=== PATIENT | female | born 1975 | race Caucasian/White ===

== ENCOUNTER 2017-06-10 12:40 | Observation (INO) | payer MEDICARE, OTHER ==
[~2017-06-10] VITALS: Ht 154.9 cm; Wt 48.2 kg
[~2017-06-10 12:40] MED LIST: ALPR1TAB2 PO; AMOX1TAB64 PO; BIOT10TA PO; CALC667C PO; CINA60TA PO; DOXE2VIA IV; ECUL300V IV; FOLI0.8T2 PO; GABA300C10 PO; HYDR200T PO; LACT10SO28 PO; LOPE1LIQ6 PO; LORA2VIA4 IV; MAGN300C PO; METH-356 PO; MIDO10TA PO; OMEP-110 PO; ONDA4TAB7 PO; ROPI0.5T2 PO; SIMV40TA3 PO; VITA0.4T5 PO; VITA1TAB19 PO; WARF2.5T73 PO; [UNRECOGNIZED DRUG - CODE] IV; [UNRECOGNIZED DRUG - CODE] IV
[2017-06-10 13:00] VITALS: BP 113/62
[2017-06-10] MEDS ORDERED: FENTANYL PF 100 MCG/2ML ONE ×3 (13:07→17:52)
[2017-06-10] MEDS ORDERED: MIDAZOLAM 1 MG/ML, 2ML ONE (13:07)
[2017-06-10] MEDS ORDERED: BUPIVACAINE/PF 0.5% ONE (13:10)
[2017-06-10] MEDS ORDERED: THROMBIN 20,000 UNIT VIAL TP ONE (13:10)
[2017-06-10] MEDS ORDERED: EPINEPHRINE 1 MG/ML, 1ML ONE (13:10)
[2017-06-10 13:57] LABS: MEAN CORPUSCULAR HEMOGLOBIN 33.1 pg (27.0-34.8); MEAN CORPUSCULAR HGB CONC 32.1 g/dL (32.4-35.8); MEAN CORPUSCULAR VOLUME 103.1 fL (80-100); MEAN PLATELET VOLUME 9.5 fL (7.4-10.4); PLATELET COUNT 99 x10^3/uL (130-400); RED BLOOD COUNT 4.01 x10^6/uL (3.82-5.3); RED CELL DISTRIBUTION WIDTH 15.7 % (9.6-15.2)
[2017-06-10 13:58] LABS: ALANINE AMINOTRANSFERASE 18 U/L (12-78); ALBUMIN 3.6 g/dL (3.4-5.0); ANION GAP 10 mmol/L (5-15); CALCIUM 10.3 mg/dL (8.5-10.1); CHLORIDE 105 mmol/L (98-107); CREATININE 6.82 mg/dL (0.55-1.02)
[2017-06-10] MEDS ORDERED: PHENYLEPHRINE 10 MG/ML ONE (13:58)
[2017-06-10] MEDS ORDERED: DEXAMETHASONE 4 MG/ML, 1ML ONE (13:58)
[2017-06-10] MEDS ORDERED: ROCURONIUM 10 MG/ML,10ML ONE (13:58)
[2017-06-10] MEDS ORDERED: ONDANSETRON 2MG/ML, 2ML ONE (13:58)
[2017-06-10] MEDS ORDERED: PROPOFOL 10 MG/ML, 20ML ONE (13:58)
[2017-06-10] MEDS ORDERED: CEFAZOLIN 1,000 MG ONE (13:58)
[2017-06-10 14:00] LABS: ALKALINE PHOSPHATASE 113 U/L (45-117); BILIRUBIN,TOTAL 0.5 mg/dL (0.2-1.0); TOTAL PROTEIN 6.6 g/dL (6.4-8.2)
[2017-06-10 14:01] LABS: BASOPHILS # (AUTO) 0.02 x10^3/uL (0-0.1); BASOPHILS % (AUTO) 0 % (0-1); EOSINOPHILS # (AUTO) 0.01 x10^3/uL (0-0.4); EOSINOPHILS % (AUTO) 0 % (1-7); LYMPHOCYTES # (AUTO) 0.65 x10^3/uL (1-3.4); LYMPHOCYTES % (AUTO) 14 % (22-44); MD SCAN; MONOCYTES # (AUTO) 0.27 x10^3/uL (0.2-0.8); MONOCYTES % (AUTO) 6 % (2-9); NEUTROPHILS # (AUTO) 3.61 x10^3/uL (1.8-6.8); NEUTROPHILS % (AUTO) 79 % (42-75)
[2017-06-10] MEDS ORDERED: ARGATROBAN IN 0.9 % SOD CHLOR 250 ML IV PRN (15:30)
[2017-06-10] MEDS ORDERED: ARGATROBAN IV ONE (15:30)
[2017-06-10] MEDS ORDERED: OXYcodone 5 MG/5 ML ORAL.SOL UDC PO PRN (16:30)
[2017-06-10] MEDS ORDERED: PROMETHAZINE 25 MG/ML, 1ML IV PRN (16:30)
[2017-06-10] MEDS ORDERED: ACETAMINOPHEN 325 MG TABLET PO PRN (16:30)
[2017-06-10] MEDS ORDERED: OXYcodone 5 MG/5 ML ORAL.SOL UDC ONE (17:52)
[2017-06-10] MEDS ORDERED: PROMETHAZINE 25 MG/ML, 1ML ONE (17:52)
[2017-06-10] MEDS: FENTANYL PF 100 MCG/2ML IV PRN ×2 (17:55→18:08)
[2017-06-10] MEDS ORDERED: HYDROmorphone 2 MG/ML, 1ML ONE ×2 (17:56→18:21)
[2017-06-10] MEDS ORDERED: VISIPAQUE 270 MG/ML, 50ML BOTTLE ONE (17:58)
[2017-06-10] MEDS: HYDROmorphone 1 MG/ML, 1ML IV PRN ×6 (18:00→18:31)
[2017-06-10] MEDS ORDERED: HYDROmorphone PCA 30 MG/30 ML ONE (18:51)
[2017-06-10] MEDS ORDERED: HYDROmorphone PCA 30 MG/30 ML IV PRN (19:00)
[2017-06-10 20:00] VITALS: BP 113/66
[2017-06-10] MEDS ORDERED: SIMVASTATIN 40 MG TABLET PO SCH (21:00)
[2017-06-10] MEDS ORDERED: HYDROXYCHLOROQUINE 200 MG TABLET PO SCH (21:00)
[2017-06-10] MEDS ORDERED: ONDANSETRON 4 MG TABLET PO PRN (21:00)
[2017-06-10] MEDS ORDERED: ROPINIROLE 0.5MG TABLET PO SCH (21:00)
[2017-06-10] MEDS ORDERED: SODIUM CHLORIDE FLUSH 10ML SYR IVF SCH (21:00)
[2017-06-10] MEDS ORDERED: GABAPENTIN 300 MG CAPSULE PO SCH (21:00)
[2017-06-10] MEDS ORDERED: LORazepam 2 MG/ML, 1ML IVPush PRN (23:00)
[2017-06-10] MEDS ORDERED: MIDODRINE 5 MG TABLET PO PRN (23:00)
[2017-06-11 00:13] VITALS: BP 110/70
[2017-06-11] MEDS: DIPHENHYDRAMINE 50 MG/ML, 1ML IVPush PRN ×3 (00:20→15:43)
[2017-06-11] MEDS: ALPRazolam 1MG TABLET PO PRN ×3 (00:20→15:44)
[2017-06-11 04:08] VITALS: BP 106/73
[2017-06-11 08:26] VITALS: BP 114/70
[2017-06-11] MEDS: CALCIUM ACETATE 667 MG CAPSULE PO SCH ×2 (08:41→11:48)
[2017-06-11] MEDS ORDERED: FOLIC ACID 1 MG TABLET PO SCH (09:00)
[2017-06-11] MEDS ORDERED: MAGNESIUM OXIDE 400 MG TABLET PO SCH (09:00)
[2017-06-11] MEDS: OXYcodone IR 5MG TABLET PO PRN ×2 (10:40→14:53)
[2017-06-11 13:49] VITALS: BP 98/64
[2017-06-11] MEDS ORDERED: HYDR2TAB29 PO (16:04)
== END 2017-06-11 16:25 | disposition home or self-care (01) ==
LOC: OR 12:40 → 4NOR 12:48 → OR 21:22 → 4NOR 21:23
PROVIDERS: ADMIT Surgery; ATTEND Surgery
DX: M62.241 Nontraumatic ischemic infarction of muscle, right hand (principal); T82.898A Other specified complication of vascular prosthetic devices, implants and grafts, initial encounter; N18.6 End stage renal disease; D75.82 Heparin induced thrombocytopenia (HIT); I95.9 Hypotension, unspecified; M06.9 Rheumatoid arthritis, unspecified; Y92.89 Other specified places as the place of occurrence of the external cause; Y82.8 Other medical devices associated with adverse incidents; Z86.73 Personal history of transient ischemic attack (TIA), and cerebral infarction without residual deficits; Z90.49 Acquired absence of other specified parts of digestive tract; Z99.2 Dependence on renal dialysis; Z85.3 Personal history of malignant neoplasm of breast
CPT/HCPCS: 36415; 36838; 36902; 75710; 80053; 85025; 93005; 96374; 96376; C1760; G0378; J0171; J0690; J0883; J1100; J1170; J1200; J2250; J2370; J2405; J2704; J3010; J3490; Q9966